=== PATIENT | female | born 1990 | race Caucasian/White ===

== ENCOUNTER 2021-07-31 17:04 | Emergency (ER) | payer OTHER, SELFPAY ==
[2021-07-31 17:15] VITALS: BP 125/69; BP 147/84; PULSE 90; PULSE 95; RESP 13; TEMP 37.4; O2SAT 97; O2SAT 99; BMI 34.6
--- NOTE | 2021-07-31 17:21 | ED_ITS ---
HPI - General Adult General Chief complaint: Nausea/Vomiting/Diarrhea Stated complaint: FEVER W/N&V X'S 1 DAY,NOT FULLY VACC Time Seen by Provider: 07/31/21 17:20 Source: patient Mode of arrival: ambulatory Limitations: no limitations History of Present Illness HPI narrative: Patient was seen here past medical history complaining of nausea vomited 1 time as some coffee colored vomitus and that got scared and came to the ER patient on vaccinations COVID but had COVID in 04/17 also patient complaining of body aches headache diffuse abdominal pain has history of stomach issues with constipation had subjective low-grade fever afebrile on arrival Related Data Previous Rx's Medication Instructions Recorded ondansetron 4 mg disintegrating 4 mg PO Q6-8H PRN #7 tab 07/31/21 tablet Allergies Allergy/AdvReac Type Severity Reaction Status Date / Time No Known Allergies Allergy Verified 07/31/21 17:21 Review of Systems Review of Systems: Yes all other systems are reviewed and are negative [facility] Past Medical History Medical History ADHD (attention deficit hyperactivity disorder) Anxiety Constipation Flatulence/gas pain/belching GERD (gastroesophageal reflux disease) Opiate addiction Social History Social History Alcohol intake: never Patient Tobacco Use Status: Never used Tobacco Use of substances other than those prescribed or required for medical reasons: No Advance Directives: No Advance Directives Information Provided: Yes Patient : No Physical Exam ED Vital Signs: Vital Signs - 24 hr 07/31/21 17:15 07/31/21 17:32 Temperature 99.4 F 99.4 F Pulse Rate 90 91 Respiratory Rate 13 18 Blood Pressure 125/69 125/69 Pulse Oximetry 97 95 BMI result Body Mass Index 34.6 Appearance: Alert. Oriented X3. No acute distress. Eyes: No pallor or icterus ENT: Pharynx normal. Oral Mucosa moist Neck: Normal inspection. Neck supple. CVS: Normal heart rate and rhythm. Pulses normal. Respiratory: No respiratory distress. Equal air entry bilateral, Abdomen: Soft , mild tenderness in epigastric area no rebound tenderness or guarding, Bowel sounds are present, no mass palpable, Skin: Skin warm and dry. Normal skin color. Normal skin turgor. Extremities: No lower extremity edema. No calf tenderness Neuro: Oriented X 3. No motor deficit. Medical Decision Making MDM Narrative Medical decision making narrative: Patient feeling much better after sublingual Zofran taking p.o. fluids labs are stable discharge patient home cause likely viral Lab Data Lab results reviewed: Yes I reviewed the patient's lab results. Labs: Lab Results 07/31/21 07/31/21 07/31/21 Range/Units 17:43 17:43 18:26 Urine Color YELLOW Urine Appearance HAZY Urine pH 7.0 (5.0-8.0) Ur Specific [place] 1.015 (1.005-1.025) Urine Protein 1+ H (NEG-TRACE) MG/DL Urine Glucose (UA) NEG (NEG) MG/DL Urine Ketones NEG (NEG) MG/DL Urine Blood NEG (NEG) Urine Nitrite NEG (NEG) Ur Leukocyte Esterase NEG (NEG) Urine RBC 5-9 H (0) /HPF Urine WBC 5-9 H (0-4) /HPF Ur Squamous Epith Cells 4+ /LPF Urine Bacteria 4+ /LPF Urine Mucus 3+ /LPF Urine Test (NEGATIVE) COVID-19 ([place]) Negative (Negative) COVID-19 Clin Com See Note Influenza Type A (EDA) Negative (Negative) Influenza Type B (EDA) Negative (Negative) Influenza A & B Note See Note 07/31/21 Range/Units 18:26 Urine Color Urine Appearance Urine pH (5.0-8.0) Ur Specific [place] (1.005-1.025) Urine Protein (NEG-TRACE) MG/DL Urine Glucose (UA) (NEG) MG/DL Urine Ketones (NEG) MG/DL Urine Blood (NEG) Urine Nitrite (NEG) Ur Leukocyte Esterase (NEG) Urine RBC (0) /HPF Urine WBC (0-4) /HPF Ur Squamous Epith Cells /LPF Urine Bacteria /LPF Urine Mucus /LPF Urine Test NEGATIVE (NEGATIVE) COVID-19 ([place]) (Negative) COVID-19 [employer] Com Influenza Type A (EDA) (Negative) Influenza Type B (EDA) (Negative) Influenza A & B Note Discharge Plan Discharge Clinical Impression: Gastroenteritis Patient Disposition: Home, Self-Care Instructions: Acute Nausea and Vomiting (ED) Additional Instructions: Drink plenty of fluid Take medication for nausea as prescribed Follow with PCP if not better Tylenol/Motrin for fever/ body aches Prescriptions: New ondansetron 4 mg tablet,disintegrating 4 mg PO Q6-8H PRN (Reason: nausea and vomiting) Qty: 7 0RF Interventions: ED Discharge Assessment Last Done: 07/31/21 20:22 Discharge Date/Time: 07/31/21 20:24
[2021-07-31 17:32] VITALS: BP 125/69; PULSE 91; RESP 18; TEMP 37.4; O2SAT 95
[2021-07-31 18:09] LABS: COVID-19 Test Negative (Negative); IDNOW Serial# 55D5AD1C
[2021-07-31 18:12] LABS: Influenza A Negative (Negative); Influenza B2 Negative (Negative)
[2021-07-31] MEDS: Magnesium Hydrox/Alum Hydrox 30 ML ORAL.SUSP PO (18:17)
[2021-07-31] MEDS: Omeprazole 40 MG CAPSULE.DR PO (18:17)
--- NOTE | 2021-07-31 18:27 | PC.NURSE ---
Addendum entered by Sade Rodriguez 07/31/21 18:29: flu/covid/urine sample obtained. lab results pending. Original Note: pt a&ox3, vss, pt reports intermittent fever 99-101, vomited today - blood tinged (bight/dark red), poss coffee ground consistancy - unsue if it was already in trash or from vomit.
[2021-07-31 18:36] LABS: Appearance Urine HAZY; Color Urine YELLOW; Glucose Urine UA NEG (NEG); Leukocyte Esterase Urine NEG (NEG); Nitrite Urine NEG (NEG); Specific Gravity - Urine 1.015 (1.005-1.025); UACC Culture Trigger NO; UPreg QC Valid YES; Urine Blood NEG (NEG); Urine Ketones NEG (NEG); Urine Pregnancy NEGATIVE (NEGATIVE); Urine Protein 1+ MG/DL (NEG-TRACE)
[2021-07-31 18:44] LABS: Bacteria Urine 4+ /LPF; Mucus Urine 3+ /LPF; Squamous Epithelial Cell Urine 4+ /LPF; UACC CULT YES
[2021-07-31] MEDS: Ketorolac Tromethamine 30 MG/ML VIAL IVPUSH (20:10)
--- NOTE | 2021-07-31 20:22 | PC.NURSE ---
PATIENT MEDICATED PER ORDER, TO BE DISCHARGED
== END 2021-07-31 20:24 | disposition home or self-care (01) ==
PROVIDERS: Emergency Provider Internal Medicine
DX: K52.9 Noninfective gastroenteritis and colitis, unspecified (principal); Z20.822 Contact with and (suspected) exposure to COVID-19; R50.9 Fever, unspecified
CPT/HCPCS: 81001; 81025; 87086; 87502; 87635; 96374; 99284; J1885

== ENCOUNTER 2024-12-31 15:45 | Outpatient (AMB) | payer OTHER, SELFPAY ==
--- OUTSIDE RECORDS SUMMARY | 2024-12-31 15:48 | XMS_ITS ---
Author Name [facility] Organization Unknown Care Team Organization Name Specialty Phone Email Start Date End Da te [facility] Sue Hays Primary [facility] 10/04/2022 12/15/2023 [facility] Dipesh Carty Primary [facility] 03/05/20222023
--- OUTSIDE RECORDS SUMMARY | 2024-12-31 15:48 | XMS_ITS | Clinical Summary ---
Author Organization [facility] Address [address] [place] [address] Care Team Providers Care Technology Resource Teacher Name Role Phone Sue Herrera MD Primary Care Prov ider Allergies No known active allergies Medications LACTOBACILLUS RHAMNOSUS-FIBER ORAL Take 1 capsule by mouth. Active phenylephrine-w itch Nila (Preparation H,pe, witch nila,) 0.25-50 % gel Apply 1 Applicator topically 2 times daily as needed (Rectal pain/bleeding). 2 Active buprenorphine-n aloxone (SUBOXONE) 2-0.[address] under the tongue. 1 1/2 strip once daily Active amphetamine-dex troamphetamine XR (Adderall XR) 20 mg 24 hr capsule Take 1 capsule (20 mg total) by mouth 1 (one) time each day. Max Daily Amount: 20 mg 2 Active amphetamine-dex troamphetamine (ADDERALL) 20 mg tablet Take 1 Tablet by mouth every evening. 2 Active docusate sodium (COLACE) 100 mg capsule Take 1 capsule (100 mg total) by mouth 2 (two) times a day. 3 Active escitalopram (LEXAPRO) 20 mg tablet Take 1.5 Tabs by mouth daily. 8 Active polyethylene glycol (Miralax) 17 gram/dose oral powder Take 17 g by mouth daily. 2 Active trimethoprim-po lymyxin b (POLYTRIM) ophthalmic solution Place 1 Drop into both eyes every 4 hours for 10 days. 3 Active psyllium (Daily Fiber, psyllium-aspart ,) 3.4 gram packet Take 1 Packet by mouth daily. 3 Active Active Problems Problem Noted Date Diagnosed Date Withdrawal complaint 08/16/2020 Anxiety and depression 02/13/2018 Overview (04/22/2024): Follows with behavioral health History of heroin abuse ([facility] V24, [facility] V2 8) 02/13/2018 Overview (04/22/2024): Last use 2011 Obesity (BMI 30-39.9) 02/13/2018 Hypertriglyceridemia 11/29/2016 Encounters Date Type Department Care Team Description 12/31/2024 Telephone Adult Medicine [address] [phone] Sue Herrera MD from Last 3 Months Immunizations Name Administration Dates Next Due Influenza Quadravalent, MDCK , 0.5ml, with preservative (Flucelvax) 6mo and older 02/13/2018 Tdap Tetanus diptheria acell ular pertussis (Boostrix; Adacel) 7yo and older 05/31/2019 Surgical History Surgery Date Site/Laterality Comments SECTION 10/07/2015 PROCEDURE: HISTORICAL APPENDECTOMY PROCEDURE: HISTORICAL APPENDECTOMY Medical History Medical History Date Comments History of hypothyroidism 02/13/2018 DX:His tory of hypothyroidism History of heroin abuse ([facility] V24, [facility] V28) 02/13/2018 DX:History of heroin abuse ( [facility]); COMMENT: Last use 2011 History of hepatitis C 02/13/2018 DX:Histor y of hepatitis C; COMMENT: Viral load pending Anxiety and depression 02/13/2018 DX:Anxiet y and depression; COMMENT: Follows with behavioral health Obesity (BMI 30-39.9) 02/13/2018 DX:Obesity (BMI 30-39.9) Constipation DX:Constipation Rectal bleeding DX:Rectal bleedi ng GERD (gastroesophageal reflu x disease) DX:GERD (gastroesophageal re flux disease) Family History Medical History Relation Name Comments Diabetes Father HTN; heart prob lems Depression Mother Other: Kidney Disease Paternal Grandfather Relation Name Status Comments Father Mother Paternal Grandfather Social History Tobacco Use Types Packs/Day Years Used Date Smoking Tobacco: Former Cigarettes 1 7 0 04/28/2006 - 04/28/2013 Smokeless Tobacco: Never Alcohol Use Standard Drinks/Week Comments No 0 (1 standard drink = 0.6 oz pur e alcohol) Comments Unknown Sex and Gender Information Value Date Recorded Sex Assigned at Not on file Legal Sex Female 9:48 PM EST Gender Identity Not on file Sexual Orientation Not on file Obstetrics History Last Filed Vital Signs Vital Sign Reading Time Taken Comments Blood Pressure 138/78 09/16/2022 10:42 AM EDT Pulse 75 07/23/2022 3:05 PM EDT Temperature - - Respiratory Rate - - Oxygen Saturation - - Inhaled Oxygen Concentration - - Weight 97.1 kg (214 lb) 09/16/2022 10:42 AM EDT Height 165.1 cm (5' 5 ) 09/16/2022 10:42 AM EDT Body Mass Index 35.61 09/16/2022 10:42 AM EDT Plan of Treatment Health Maintenance Due Date Last Done Comments Hepatitis B Vaccines (1 of 3 - 19+ 3-dose series) 2009 HIV Screening 04/06/2022 Social Influencers of Health Screening 04/06/2022 Depression Screening 04/28/2024 Cervical Cancer Screening: HPV 10/05/2024 10/06/2019 Cholesterol Screening (Lipid Panel) 11/09/2024 11/10/2019 COVID-19 Vaccine ( - 2023-2 5 season) 2024 Influenza Vaccine (#1) 2024 02/13/2018 DTaP,Tdap,and Td Vaccines (2 - Td or Tdap) 05/31/2029 05/31/2019 Hepatitis C Screening Completed 02/13/2018 HIB Vaccines Aged Out No longer eligi ble based on patient's age to complete this topic HPV Vaccines Aged Out No longer eligi ble based on patient's age to complete this topic Hepatitis A Vaccines Aged Out No long er eligible based on patient's age to complete this topic IPV Vaccines Aged Out No longer eligi ble based on patient's age to complete this topic MMR Vaccines Aged Out No longer eligi ble based on patient's age to complete this topic Meningococcal ACWY Vaccine Aged Out N o longer eligible based on patient's age to complete this topic Meningococcal B Vaccine Aged Out No l onger eligible based on patient's age to complete this topic Pneumococcal Vaccine: Pediat rics (0 to 5 Years) and At-Risk Patients (6 to 49 Years) Aged Out No longer eligi ble based on patient's age to complete this topic RSV Immunization Patients Un meet 20 months Aged Out No longer eligible b ased on patient's age to complete this topic Varicella Vaccines Aged Out No longer eligible based on patient's age to complete this topic Procedures Procedure Name Priority Date/Time Associated Diagnosis Comments LIPID PANEL Routine 11/10/2019 HPV Routine 10/06/2019 HEPATITIS C SCREENING Routine 02/13/2018 from Last 3 Months or Most Recently Relevant to Health Maintenance Results * (ABNORMAL) Lipid panel (11/10/2019) [facility] LDL/HDL Ratio 6(A) 0 - 4 Triglycerides 390(A) 0 - 150 mg/dL Cholesterol 224(A) 0 - 200 mg/dL HDL 37(A) >=40 mg/dL LDL Cholesterol 109(A) 0 - 100 mg/dL Blood Venous blood specimen / Unknown [facility] Provider LAB BLOOD ORDERABLES Antonietta l Result * Cervical Cancer Screening: HPV (10/06/2019) [facility] Cervical Cancer Screening: HPV no interpretation , abstracted [facility] Provider HEALTH MAINTENANCE Final Result * Hepatitis C Screening (02/13/2018) [facility] Hepatitis C Screening abstracted Historical Provider HEALTH MAINTENANCE Final Result from Last 3 Months or Most Recently Relevant to Health Maintenance Care Teams Technology Resource Teacher Relationship Specialty Start Date End Date Sue Herrera MD PCP - General 03/08/22
--- OUTSIDE RECORDS SUMMARY | 2024-12-31 15:48 | XMS_ITS | Encounter Summary ---
Author Organization [facility] Address [address] [place] [address] Care Team Providers Care Sand Conditioner Name Role Phone Sue Herrera MD Primary Care Prov ider Reason for Visit * Reason Onset Date Comments Headache 12/31/2024 Dental Pain 12/31/2024 Encounter Details Date Type Department Care Team (Late st Contact Info) Description 12/31/2024 Telephone Adult [address] [phone] Sue Herrera MD [address] [place] [address] Social History Tobacco Use Types Packs/Day Years [...] on file Sexual Orientation Not on file documented as of this encounter Progress Notes * Minal Bourne RN - 12/31/2024 1:50 PM EDT Both sides at the top has broken teeth with holes in them Hard to eat Light headed and dizzy because not eating. Has dentist appt on Friday but they have not seen her before and will not prescribe anything to help until after first visit Advised for eval and treat, she will go today * Dustin Smith - 12/31/2024 1:41 PM EDT Patient call requires triage: Symptoms patient is presenting: Patient called stating that she has been having teeth pain , an infection , feels light headed and dizzy , would like to speak to nurse to get advice on what to do How long has patient had these symptoms?: a couple of days For ALL patients calling to schedule any appointment (routine, sick visit, follow up, consult, etc.) in the outpatient setting please ask the following questions: Do you have fever of higher than 101, sore throat with difficulty swallowing or severe shortness ofbreath? no If YES to any of these above symptoms, send a message to triage and do not book. Red dot. If no, an audio or video visit should be booked. Have you had close contact with someone with Coronavirus in the last 14 days? no Have you traveled abroad? no Have you traveled recently to another state outside of [place], [place], [place], [place], [place], [place], [place]? no o If yes, did you quarantine for 14 days or have a negative covid test? no If yes to any of the above, patient is not to be scheduled in office until after 14 day quarantine or negative covid test. If pain or injury related was it due to an accident at work or from a motor vehicle accident? If yes, date of accident/Injury: No If yes, gather 3rd republican insurance information Third Libertarian Information: not applicable PCP: Sue Downing MD Payor: / No coverage found. documented in this encounter Plan of Treatment Not on file documented as of this encounter Visit Diagnoses Not on filedocumented in this encounter Care Teams Sand Conditioner Relationship Specialty Start Date End Date Sue Herrera MD PCP - General 03/08/22 documented as of this encounter
[2024-12-31 15:52] VITALS: BP 112/60; PULSE 77; TEMP 36.9; O2SAT 96; BMI 35.2
--- NOTE | 2024-12-31 15:52 | MHC.OFFWIV ---
Intake Vital Signs 12/31/24 15:52 Height 5 ft 7 in Weight 225 lb BMI 35.2 BP 112/60 Blood Pressure Location Lt brachial Position Sitting Pulse 77 Pulse Source Pulse Oximeter Temp 98.5 F Temp Source Oral Pulse Oximetry (%) 96 Oxygen Delivery Method Room Air Intake Visit Reasons: EP Mouth pain, lightheaded Intake Note: pt presents with dizziness, lightheaded and teeth/gum pain. appt with dentist 01/04/25 Patient Tobacco Use Status: Never used Tobacco Allergies No Known Allergies Allergy (Verified 12/31/24 15:55) Do you need a note to return to daycare/school/sports/work: No HPI HPI Comments History of Present Illness Details History of Present Illness - The patient is a 34-year-old female presenting with dental pain and dizziness for a few days. - The dental pain is severe, requiring continuous ibuprofen use. - Denies ear pain or sinus pain, is eating and drinking normally - dizziness not worse with positional changes - the patient has a pending dental appointment for 01/04 Physical Exam General: Cooperative, healthy appearing, comfortable, no acute distress and well developed Orientation: Patient oriented x3 Limitations: No limitations Head: Normal to inspection Ears: Hearing grossly normal bilaterally, EAC with erythema, TM's normal Mouth: multiple dental caries noted bilateral upper teeth 4-6 and 12-14, normal moist oral mucosa, normal tongue Nose: Normal External nose present Face and sinus: Normal facial exam Eyes: Appearance normal, both eyes and all related structures Neck: Normal visual inspection and Yes full ROM Respiratory: Normal respiratory effort and able to speak in complete sentences. Skin: No rashes or lesions noted Neuro: Patient oriented x3 Extremities: Normal to inspection [facility] Medical History ADHD (attention deficit hyperactivity disorder) Anxiety Constipation Flatulence/gas pain/belching GERD (gastroesophageal reflux disease) Opiate addiction Social History Alcohol intake: never Patient Tobacco Use Status: Never used Tobacco Review of Systems Const All systems reviewed & are unremarkable except as noted in HPI and below Physical Exam Vital Signs: Last Vital Signs Temp 98.5 F 12/31/24 15:52 Pulse 77 12/31/24 15:52 BP 112/60 12/31/24 15:52 Pulse Ox 96 12/31/24 15:52 Oxygen Delivery Method Room Air 12/31/24 15:52 BMI result Body Mass Index 35.2 Assessment & Plan Assessment & Plan (1) Dental infection: Code(s): K04.7 - Periapical abscess without sinus Plan: Patient was informed and verbally consented to the use of an ambient scribe for clinic note documentation during this visit. Dental Infection - Prescribed Amoxicillin 875 mg twice daily for five days to manage the infection until the dental appointment. - Advised to continue ibuprofen for pain management. - Suggested use of Flonase nasal spray to alleviate potential dental/ear/sinus-related symptoms. Medications: New amoxicillin 875 mg PO Q12H 10 tabs 0RF 5 days Discontinued ondansetron Discontinued Reason: Patient Completed Course 4 mg PO Q6-8H PRN 7 tabs 0RF nausea and vomiting Coding Level of Care Code New Pt Level 3 (76477) Diagnoses Dental infection K04.7
== END 2024-12-31 17:48 | disposition home or self-care (01) ==
PROVIDERS: Visit Provider Physician Assistant
DX: K04.7 Periapical abscess without sinus (principal)

== ENCOUNTER → 2024-12-31 15:45 | Outpatient (BNVA) | payer OTHER, SELFPAY | PROVIDERS: Visit Provider Physician Assistant | DX: K04.7 Periapical abscess without sinus (principal) | CPT/HCPCS: 99202 ==